=== PATIENT | male | born 1950 | race Caucasian/White ===

== ENCOUNTER → 2017-07-28 07:00 | Outpatient (CLI) | payer OTHER, SELFPAY ==
[2017-07-28 10:55] LABS: ALB/GLOB Ratio 1.1 RATIO (0.9-2.4); AST(SGOT) 18 U/L (15-37); Alanine Aminotransfer ALT/SGPT 34 U/L (16-61); Albumin, Serum 3.8 g/dL (3.2-5.0); Alkaline Phosphatase 84 U/L (45-117); Anion Gap 7 (5-15); BUN 17 mg/dL (7-18); BUN/Creat Ratio 18.8 RATIO (10-20); Calcium,Total 8.7 mg/dL (8.5-10.1); Chloride 107 mmol/L (98-107); Cholesterol 180 mg/dL (200); EST Glomerular Filtration Rate 89 mL/min (>60); Est Glom Filt Rate - Afr Amer 108 mL/min (>60); Globulin 3.4 g/dL (2.2-4.2); Glucose 95 mg/dL (74-106); High Density Lipoprotein 33 mg/dL; PSA,Total - Annual Screen 5.48 ng/mL (0.00-4.00); Potassium 4.1 mmol/L (3.5-5.1); Protein, Total 7.2 g/dL (6.4-8.2); Sodium Level 141 mmol/L (136-145); Triglycerides 101 mg/dL; Very Low Density Lipoprotein 20 mg/dL (5-40)
[2017-07-29 07:12] LABS: Hep C Antibodies <0.1 s/co ratio (0.0-0.9)
== END ==
PROVIDERS: Family Provider Family Medicine; PCP Family Medicine; Visit Provider Family Medicine
DX: Z11.59 Encounter for screening for other viral diseases (principal); Z12.5 Encounter for screening for malignant neoplasm of prostate; E78.00 Pure hypercholesterolemia, unspecified
CPT/HCPCS: 36415; 80053; 80061; 84153; 86803; G0103

== ENCOUNTER → 2017-10-22 07:04 | Outpatient (CLI) | payer OTHER, SELFPAY ==
[2017-10-23 11:26] LABS: PSA, Free 0.74 ng/mL; PSA, Free % 15.1 % (.); PSA, Total Ultrasensitive 4.9 ng/mL (0.0-4.0)
== END ==
PROVIDERS: Family Provider Family Medicine; PCP Family Medicine; Visit Provider Family Medicine
DX: R97.20 Elevated prostate specific antigen [PSA] (principal)
CPT/HCPCS: 36415; 84153; 84154

== ENCOUNTER → 2018-04-21 07:02 | Outpatient (CLI) | payer OTHER, SELFPAY ==
[2018-04-22 12:07] LABS: PSA, Free 0.21 ng/mL; PSA, Free % 26.3 % (.); PSA, Total Ultrasensitive 0.8 ng/mL (0.0-4.0)
== END ==
PROVIDERS: Family Provider Family Medicine; PCP Family Medicine; Referring Provider Family Medicine; Visit Provider Family Medicine
DX: R97.20 Elevated prostate specific antigen [PSA] (principal)
CPT/HCPCS: 36415; 84153; 84154

== ENCOUNTER 2018-11-18 21:06 | Emergency (ER) | payer OTHER, SELFPAY ==
[2018-11-18 21:07] VITALS: BP 156/88; PULSE 68; RESP 16; TEMP 36.7; O2SAT 97; BMI 29.4
--- NOTE | 2018-11-18 21:35 | CT_ITS ---
STUDY: CT ABDOMEN AND PELVIS WITHOUT CONTRAST REASON FOR EXAM: Male, 68 years old. Right flank pain RADIATION DOSAGE (If Supplied By Facility): CTDIvol = ( 10.38 ) mGy, DLP = ( 604.30 ) mGycm TECHNIQUE: Transaxial images were obtained from the dome of the diaphragm to the symphysis pubis without oral contrast, and without intravenous contrast. Sagittal and coronal images were reconstructed. Individualized dose optimization techniques were used for this CT. COMPARISON: None. FINDINGS: Left lower lobe calcified granulomas. The visualized portions of the heart are within normal limits. Granulomatous calcifications in the spleen and liver. Normal gallbladder and extrahepatic biliary system. Normal pancreas. Normal bilateral adrenal glands. Mild hydronephrosis of the right kidney with right hydroureter. There is an obstructive 5 mm stone at the right ureteral level. Mild right perinephric stranding. Nonobstructive 2 mm upper pole stone in the left kidney. Normal visualized stomach. Normal small intestine. Diverticulosis of the colon. The appendix is visualized and appears normal. Normal abdominal aorta. Normal inferior vena cava. Normal retroperitoneum. Normal urinary bladder. The prostate measures 4 x 5.3 cm. Fatty density at the inguinal canals, left more than right. Normal abdominal wall. Mild degenerative vertebral changes. CT/Abdomen/Pelvis without Cont IMPRESSION: Obstructive right mid ureteral stone with right hydronephrosis and proximal right hydroureter. Nonobstructive left renal stone. Electronically Signed: Sai Ly DO at 22:38 EDT Tel [phone], Service support ,
--- NOTE | 2018-11-18 21:35 | ED.VIS.GEN ---
History of Present Illness Chief Complaint: Back Informant: Patient Onset: Weeks Current Severity: Moderate Narrative: He came in for evaluation, he had normal urinary bowel bladder habits no trauma no history of kidney stone or kidney ailments, no nausea or vomiting or fever takes no medications has really no past history assures me he did not injure himself in any way he points right his right flank the midline back is not tender the pain does not radiate, he has no lower extremity issues or complaints again he was very active today mowing the yard without difficulty he complains of right flank pain for about a week or so seems to come and go he was able to move the yard today he had exacerbation Past Medical History - Allergies and Home Meds Allergies/Adverse Reactions: Allergies No Known Allergies Allergy (Verified 11/18/18 21:09) Primary Care Physician: Leroy Salcido MD [Primary Care Provider] - Past Medical History: None Review of Systems All systems negative except as indicated General: Denies: Chills, Fever, Sweats Eyes: Denies: Visual changes - bilaterally, Diplopia ENT: Denies: Rhinorrhea, Sore throat Cardiovascular: Denies: Chest pain, Palpitations Respiratory: Denies: Dyspnea, Cough, Dyspnea on exertion Gastrointestinal: Denies: Abdominal pain, Nausea, Vomiting, Diarrhea, Melena, Hematochezia Genitourinary: Denies: Dysuria, Hematuria, Frequency Musculoskeletal: Reports: Back pain. Denies: Extremity Pain Skin: Denies: Rash, Wounds Neurological: Denies: Headache, Weakness, Numbness Physical Exam Vital Signs/Narrative: Vital Signs Temp Pulse Resp BP Pulse Ox 11/18/18 21:07 98.1 F 68 16 156/88 H 97 Inital Vital Signs reviewed: Yes General: Well nourished, Well developed, No Acute Distress Head: Normocephalic, Atraumatic Eyes: Perrl, EOMI ENT: Moist mucous membranes, No rhinorrhea Neck: Supple, Nontender Cardiovascular: Regular rate, Regular rhythm, No murmurs Respiratory: No distress, CTA bilaterally, Chest nontender Abdomen: Soft, Nontender, Nondistended, Normal bowel sounds Back: Nontender, Normal Inspection, CVA tenderness, - - He has pain to the right flank there is no lesions warmth tenderness here the midline back is entirely unremarkable the abdomen is soft and nontender Extremities: Nontender, No edema Skin: Normal color, No rash Neurological: Alert, Oriented x3, Cranial nerves II-XII grossly intact, Normal Strength, Normal Sensation Psychological: Normal affect, Normal Mood Diagnostic/Tx/Re-eval - Medical Decision Making Given his complaints given the nature of the pain that it seems to be waxing and waning it seemed to exacerbate today but not because he more the lawn he reports any trauma screening labs CT IV fluids The patient's labs are generally unremarkable except his UA shows 5-10 whites 5-10 reds, urine culture sent, the CT scan shows a 5 mm obstructing stone right ureter see that report on reevaluation is resting company feels better Explained all of the above to him he is comfortable with discharge home on Naprosyn, Meldrim, as a rescue medicine Flomax, he will follow-up with Deon PEREZ and return for change in symptoms and understands need to have the urine culture result checked Final impression Right flank pain related to obstructing right kidney stone ED Disposition - Plan for ED Patient: Diagnosis: Kidney stone on right side Prescriptions: Hydrocodone Bitart/Apap 5-325 [Meldrim 5MG-325MG] 1 tab PO Q4H PRN PRN 2 Days #10 tab PRN Reason: Pain Naproxen [Naprosyn] 500 mg PO BID PRN #20 tab Tamsulosin HCl [Flomax] 0.4 mg PO DAILY #7 cap Referrals: Leroy Salcido MD [Primary Care Provider] - Fransico Gallagher MD [STAFF PHYSICIAN] -
[2018-11-18 21:58] LABS: Squamous Epithelial Cells - UA 0 SEEN /hpf (0-5)
[2018-11-18] MEDS: 0.9% Normal Saline 1,000 ML 250 ML IV (21:58)
[2018-11-18] MEDS: Ondansetron 4 MG/2 ML Vial IV (21:58)
[2018-11-18] MEDS: Ketorolac 30 MG/ML Syringe IV (21:58)
[2018-11-18] MEDS: morphine 8 MG/ML Syringe IV (21:59)
[2018-11-18 22:06] LABS: Color, Urine Yellow (Yellow); Glucose, Dipstick Normal (Normal); Ketone-Dipstick 5 mg/dl (Negative); Leukocyte Esterase-Dipstick 25 /ul (Negative); Nitrite-Dipstick Negative (Negative); Occult Blood-Urine 150 /ul (Negative); Protein-Dipstick 30 mg/dl (Negative); Urine Bilirubin Dipstick Negative (Negative); Urine Clarity Clear (Clear); Urine Urobilinogen 1 mg/dl (Normal)
[2018-11-18 22:22] LABS: Bacteria RARE /hpf (None Seen); Mucous, Urine 1+ /hpf (<or=2+); Red Blood Cells-Urine 5-10 SEEN /hpf (0-5); White Blood Cells 5-10 SEEN /hpf (0-5)
[2018-11-18 22:25] LABS: Anion Gap 5 (5-15); BUN 25 mg/dL (7-18); BUN/Creat Ratio 19.4 RATIO (10-20); Calcium,Total 9.3 mg/dL (8.5-10.1); Chloride 110 mmol/L (98-107); Creatinine, Serum 1.29 mg/dL (0.70-1.30); EST Glomerular Filtration Rate 59 mL/min (>60); Est Glom Filt Rate - Afr Amer 71 mL/min (>60); Estimated Creatinine Clearance 56.59 ml/min; Glucose 146 mg/dL (74-106); Potassium 3.9 mmol/L (3.5-5.1); Sodium Level 143 mmol/L (136-145)
[2018-11-18 23:30] VITALS: BP 136/78; PULSE 58; RESP 16; O2SAT 98
== END 2018-11-18 23:45 | disposition home or self-care (01) ==
LOC: ED 21:39
PROVIDERS: Emergency Provider Emergency Medicine; Family Provider Family Medicine; PCP Family Medicine
DX: N13.2 Hydronephrosis with renal and ureteral calculous obstruction (principal)
CPT/HCPCS: 74176; 80048; 81001; 87086; 96361; 96374; 96375; 99284; J7030; A4216; J2405

== ENCOUNTER → 2018-11-22 10:22 | Outpatient (CLI) | payer OTHER, SELFPAY ==
[2018-11-18 21:07] VITALS: BMI 29.4
--- NOTE | 2018-11-22 10:35 | RAD_ITS ---
STUDY: X-RAY - ABDOMEN/PELVIS REASON FOR EXAM: Male, 68 years old. History of kidney stone. TECHNIQUE: Single AP view of the abdomen / pelvis. COMPARISON: None. FINDINGS: There are nonspecific gaseous small bowel loops and colon. The visualized liver, spleen and kidneys are grossly normal in size. There is no demonstrated abnormal calcifications in the region of the kidneys or the pelvis region. There are diffuse degenerative changes of the visualized lumbar spine. RAD/Abdomen Single View IMPRESSION: Nonspecific gas pattern. Electronically Signed: Baron Villagomez MD at 8:25 EDT Tel , Service support ,
== END ==
PROVIDERS: Family Provider Family Medicine; PCP Family Medicine; Referring Provider Urology; Visit Provider Urology
DX: N20.0 Calculus of kidney (principal)
CPT/HCPCS: 74018

== ENCOUNTER 2018-11-24 13:10 | Day surgery (SDC) | payer OTHER, SELFPAY ==
[2018-11-24 13:26] VITALS: BP 138/87; PULSE 75; RESP 16; TEMP 36.7; O2SAT 99; BMI 29.4
--- NOTE | 2018-11-24 15:07 | DCINST_ITS ---
Discharge Diet: Light diet - advance as tolerated Discharge Activity: Return to Normal Activity Allergies/Adverse Reactions: Allergies No Known Allergies Allergy (Verified 11/23/18 13:42) Medications to take at Discharge Aspirin [Aspir-Low] 81 mg PO DAILY 11/18/18 Atorvastatin Calcium 10 mg PO DAILY 11/18/18 Naproxen [Naprosyn] 500 mg PO BID PRN PRN 11/23/18 Primary Care Physician: Leroy Salcido MD [Primary Care Provider] - Test Results: Test results from this visit will be discussed in further detail at your follow- up appointment, if applicable. Please Follow Up With: Fransico Gallagher MD When: please call to make an appointment.
[2018-11-24] MEDS: Cefazolin 2 GM in 0.9% Normal Saline 100 ML IV (15:16)
--- NOTE | 2018-11-24 16:08 | OP.PCM_ITS ---
Report of Operation Date of Procedure: 11/24/18 Pre-Operative Diagnosis: Right ureteral calculi Post-Operative Diagnosis: Same Surgery/Procedure Performed:: Cystoscopy, balloon dilation of the right ureter, right ureteroscopy laser lithotripsy of stone, right retrograde pyelogram and interpretation fluoroscopic images, and right stent placement Description of Surgical Findings:: 68-year-old male presents with an obstructing stone in the mid right ureter today renal proceed with right ureteroscopy and laser lithotripsy of stone and stent placement 68-year-old male taken back to the operating room at the smooth induction of general anesthesia he was placed in dorsolithotomy position, the penis and testicles are prepped and draped in usual sterile fashion, went into the bladder with a 21 Macanese rigid cystourethroscope, the entire length the urethra was normal pendulous urethra was normal bulbar urethra normal sphincter was intact went to the prostate had some mild hypertrophy of the prostate into the bladder identified the right ureteral orifice used a balloon dilator and Glidewire cannulated the right ureteral orifice with a Glidewire advanced a wire up into the kidney, then behind the wire advanced a 10 cm 12 Macanese balloon dilator and balloon dilated the distal ureteral orifice. After completion of the balloon dilation then left the wire in place drain the bladder and then went over the wire with a flexible 8 Macanese ureteroscope, was able to get into the ureter quite easily went up the ureter as encountered the stone the stone and flushed back into the kidney and then trapped the stone in the midpole of the kidney and performed laser lithotripsy into the stone was broken up the tiny fragments once a stone was broken up and smaller fragments are all passed in the Abril then performed a retrograde pyelogram to look at the images to see the filling of the contrast filling the kidney upper pole midpole lower pole no other fragments were seen but a wire at the ureteroscope work my way down the ureter I did not see any major fragments or stones along the course of the ureter no injury perforation along the course of the ureter and then over the wire I placed a stent it was a 6 Macanese by 26 cm stent left the stent in place once I pulled the wire stent in the kidney bladder good position left the string on the stent for easy extraction in near future bladder was drained left the stent on there and trimmed it and then patient's anesthetic is currently being reversed to be discharged home with a stent and follow-up next week on Thursday to remove the stent in the office. Type of Anesthesia:: General Drains: stent - Admit VTE Documentation VTE Present on Admission: No VTE Mechan Device Prophylaxis: SCD's
[2018-11-24 16:15] VITALS: BP 127/79; BP 138/87; PULSE 95; RESP 16; TEMP 36.6; O2SAT 93
[2018-11-24] MEDS: Ketorolac 15 MG/ML Vial IV (16:23)
[2018-11-24 16:30] VITALS: BP 126/82; BP 138/87; PULSE 68; RESP 16; O2SAT 99
[2018-11-24 16:33] VITALS: BP 129/85; BP 138/87; PULSE 69; RESP 16; TEMP 36.6; O2SAT 100
[2018-11-24] MEDS: Acetaminophen 325 MG Tablet 650 MG PO (17:05)
[2018-11-24 17:15] VITALS: BP 138/87
== END 2018-11-24 17:25 | disposition home or self-care (01) ==
LOC: SDC 13:11 → AC 13:12
PROVIDERS: Family Provider Family Medicine; PCP Family Medicine; Referring Provider Urology; Visit Provider Urology
PROC: 0TJ98ZZ Inspection of Ureter, Via Natural or Artificial Opening Endoscopic (ICD-10-PCS; CPT 52352; principal; 2018-11-24 15:05)
DX: N20.1 Calculus of ureter (principal); E78.00 Pure hypercholesterolemia, unspecified; Z79.82 Long term (current) use of aspirin; Z79.899 Other long term (current) drug therapy
CPT/HCPCS: 00873; 52356; 76000; J7120; C1769; C2617; J2405

== ENCOUNTER → 2018-12-08 07:02 | Outpatient (CLI) | payer OTHER, SELFPAY ==
[2018-11-24 13:26] VITALS: BMI 29.4
[2018-12-08 10:28] LABS: AST(SGOT) 18 U/L (15-37); Alanine Aminotransfer ALT/SGPT 33 U/L (16-61); Albumin, Serum 3.6 g/dL (3.2-5.0); Alkaline Phosphatase 92 U/L (45-117); Anion Gap 8 (5-15); BUN 22 mg/dL (7-18); BUN/Creat Ratio 22.8 RATIO (10-20); Calcium,Total 8.7 mg/dL (8.5-10.1); Chloride 110 mmol/L (98-107); Cholesterol 179 mg/dL (200); Creatinine, Serum 0.97 mg/dL (0.70-1.30); EST Glomerular Filtration Rate 82 mL/min (>60); Est Glom Filt Rate - Afr Amer 99 mL/min (>60); Globulin 3.6 g/dL (2.2-4.2); Glucose 96 mg/dL (74-106); High Density Lipoprotein 32 mg/dL; PSA,Total- Diagnostic 7.78 ng/mL (0.0-4.0); Potassium 3.8 mmol/L (3.5-5.1); Protein, Total 7.2 g/dL (6.4-8.2); Sodium Level 145 mmol/L (136-145); Triglycerides 100 mg/dL; Very Low Density Lipoprotein 20 mg/dL (5-40)
== END ==
PROVIDERS: Family Provider Family Medicine; PCP Family Medicine; Referring Provider Family Medicine; Visit Provider Family Medicine
DX: E78.00 Pure hypercholesterolemia, unspecified (principal); R97.20 Elevated prostate specific antigen [PSA]
CPT/HCPCS: 36415; 80053; 80061; 84153

== ENCOUNTER → 2019-04-13 07:11 | Outpatient (CLI) | payer MEDICARE, OTHER, SELFPAY ==
[2019-04-13 10:17] LABS: PSA,Total- Diagnostic 5.38 ng/mL (0.0-4.0)
== END ==
PROVIDERS: Family Provider Family Medicine; PCP Family Medicine; Referring Provider Urology; Visit Provider Urology
DX: R97.20 Elevated prostate specific antigen [PSA] (principal)
CPT/HCPCS: 36415; 84153

== ENCOUNTER → 2019-06-21 07:00 | Outpatient (CLI) | payer MEDICARE, OTHER, SELFPAY ==
[2019-06-22 11:37] LABS: PSA, Free 0.81 ng/mL; PSA, Total Ultrasensitive 5.4 ng/mL (0.0-4.0)
== END ==
PROVIDERS: Family Provider Family Medicine; PCP Family Medicine; Referring Provider Urology; Visit Provider Urology
DX: R97.20 Elevated prostate specific antigen [PSA] (principal)
CPT/HCPCS: 36415; 84153; 84154

== ENCOUNTER → 2019-10-13 07:01 | Outpatient (CLI) | payer MEDICARE, OTHER, SELFPAY ==
[2019-10-14 11:01] LABS: PSA, Free 1.05 ng/mL
== END ==
PROVIDERS: PCP Family Medicine; Referring Provider Urology; Visit Provider Urology
DX: R97.20 Elevated prostate specific antigen [PSA] (principal)
CPT/HCPCS: 36415; 84153; 84154

== ENCOUNTER → 2019-11-01 08:00 | Outpatient (CLI) | payer MEDICARE, OTHER, SELFPAY ==
--- NOTE | 2019-11-01 08:00 | PROSBIL_PTH ---
PATIENT: KEILY HOOPER LOC: [facility] U#:[id number] AGE/SX: 75/M ROOM: RE11/01/[address]: Dr. Fransico Gallagher MD : 1950 BED: DIS: SPEC #: [id number] RECD: 11/01/19 17:03 STATUS: JOSS VANNESSA #: [id number] DASH: 11/01/19 08:[address]: Fransico Gallagher DEPT: SURGICAL PATHOLOGY RECD BY: Cong Caicedo ENTERED: 11/02/19 10:57 SP TYPE: PROST BX OTHR DR: Dr. Jerald Salcido MD Tissues: A - PROSTATE RIGHT B - PROSTATE RIGHT C - PROSTATE RIGHT D - PROSTATE LEFT E - PROSTATE LEFT F - PROSTATE LEFT Procedures: PROSTATE BX Special Stain Group I AF[employer] Stain (control) GMS Stain (control) HEADER OPERATION: Prostate biopsy PRE-OP DIAGNOSIS: Prostate cancer TISSUE SUBMITTED: A - Right apex, B - Right mid, C - Right base, D - Left apex, E - Left mid, F - Left base MICROSCOPIC DIAGNOSIS A. Right prostate, apex, core biopsy: Prostatic tissue, negative for malignancy. Focal mild chronic granulomatous inflammation. Special stains for acid fast bacilli and fungi are negative for organisms; matched controls are appropriate. B. Right prostate, mid, core biopsy: Prostatic tissue, negative for malignancy. C. Right prostate, base, core biopsy: Prostatic tissue, negative for malignancy. D. Left prostate, apex, core biopsy: Prostatic tissue, negative for malignancy. E. Left prostate, mid, core biopsy: Prostatic tissue, negative for malignancy. Focal minimal acute and chronic inflammation. F. Left prostate, base, core biopsy: Prostatic tissue, negative for malignancy. SJ:tahira 11/03/19 MICROSCOPIC DESCRIPTION Slides are reviewed. GROSS DESCRIPTION A - Received is one container designated prostate, right apex. The specimen consists of two elongated fragments of light borrego-white soft tissue measuring 1.5 and 1.8 cm in length and 0.1 cm in diameter. The specimen is totally submitted in one cassette. B - Received is one container designated prostate, right mid. The specimen consists of three elongated fragments of light borrego-white soft tissue measuring 0.6 to 1.8 cm in length and 0.1 cm in diameter. The specimen is totally submitted in one cassette. C - Received is one container designated prostate, right base. The specimen consists of two elongated fragments of light borrego-white soft tissue each measuring 1 cm in length and 0.1 cm in diameter. The specimen is totally submitted in one cassette. D - Received is one container designated prostate, left apex. The specimen consists of two elongated fragments of light borrego-white soft tissue each measuring 1 cm in length and 0.1 cm in diameter. The specimen is totally submitted in one cassette. E - Received is one container designated prostate, left mid. The specimen consists of two elongated fragments of light borrego-white soft tissue measuring 1.3 and 2 cm in length and 0.1 cm in diameter. The specimen is totally submitted in one cassette. F - Received is one container designated prostate, left base. The specimen consists of two elongated fragments of light borrego-white soft tissue each measuring 1.5 and 0.1 cm in length and 0.1 cm in diameter. The specimen is totally submitted in one cassette. / OK:tahira 11/02/19 TC:3 CPT: G0146, 41959 x2
== END ==
PROVIDERS: PCP Family Medicine; Referring Provider Urology; Visit Provider Urology
DX: C61 Malignant neoplasm of prostate (principal)
CPT/HCPCS: 88305; 88312; G0416

== ENCOUNTER → 2019-11-11 07:02 | Outpatient (CLI) | payer MEDICARE, OTHER, SELFPAY ==
[2019-11-11 10:25] LABS: ALB/GLOB Ratio 1.1 RATIO (0.9-2.4); AST(SGOT) 18 U/L (15-37); Alanine Aminotransfer ALT/SGPT 24 U/L (16-61); Alkaline Phosphatase 83 U/L (45-117); Anion Gap 8 (5-15); BUN 25 mg/dL (7-18); BUN/Creat Ratio 28.3 RATIO (10-20); Calcium,Total 8.9 mg/dL (8.5-10.1); Chloride 110 mmol/L (98-107); Cholesterol 192 mg/dL (200); Creatinine, Serum 0.88 mg/dL (0.70-1.30); EST Glomerular Filtration Rate 91 mL/min (>60); Est Glom Filt Rate - Afr Amer 110 mL/min (>60); Globulin 3.5 g/dL (2.2-4.2); Glucose 91 mg/dL (74-106); High Density Lipoprotein 34 mg/dL; Potassium 3.7 mmol/L (3.5-5.1); Protein, Total 7.5 g/dL (6.4-8.2); Sodium Level 143 mmol/L (136-145); Triglycerides 77 mg/dL; Very Low Density Lipoprotein 15 mg/dL (5-40)
== END ==
PROVIDERS: PCP Family Medicine; Referring Provider Family Medicine; Visit Provider Family Medicine
DX: E78.00 Pure hypercholesterolemia, unspecified (principal)
CPT/HCPCS: 36415; 80053; 80061

== ENCOUNTER → 2020-02-16 07:00 | Outpatient (CLI) | payer MEDICARE, OTHER, SELFPAY ==
[2020-02-16 10:27] LABS: Cholesterol 154 mg/dL (200); High Density Lipoprotein 31 mg/dL; Triglycerides 129 mg/dL; Very Low Density Lipoprotein 26 mg/dL (5-40)
== END ==
PROVIDERS: PCP Family Medicine; Referring Provider Family Medicine; Visit Provider Family Medicine
DX: E78.00 Pure hypercholesterolemia, unspecified (principal)
CPT/HCPCS: 36415; 80061

== ENCOUNTER → 2020-05-09 07:08 | Outpatient (CLI) | payer MEDICARE, OTHER, SELFPAY | PROVIDERS: PCP Family Medicine; Referring Provider Urology; Visit Provider Urology | DX: R97.20 Elevated prostate specific antigen [PSA] (principal) | CPT/HCPCS: 36415; 84153 ==

== ENCOUNTER → 2020-05-18 16:08 | Outpatient (CLI) | payer MEDICARE, OTHER, SELFPAY | PROVIDERS: PCP Family Medicine; Referring Provider Nurse Practitioner Family; Visit Provider Nurse Practitioner Family | DX: R43.0 Anosmia (principal) | CPT/HCPCS: 87635; U0003 ==

== ENCOUNTER → 2020-11-02 07:04 | Outpatient (CLI) | payer MEDICARE, SELFPAY ==
[2020-11-02 10:43] LABS: ALB/GLOB Ratio 1.1 RATIO (0.9-2.4); AST(SGOT) 14 U/L (15-37); Alanine Aminotransfer ALT/SGPT 24 U/L (16-61); Albumin, Serum 3.8 g/dL (3.2-5.0); Alkaline Phosphatase 87 U/L (45-117); Anion Gap 4 (5-15); BUN 21 mg/dL (7-18); BUN/Creat Ratio 23.8 RATIO (10-20); Chloride 109 mmol/L (98-107); Cholesterol 145 mg/dL (200); Creatinine, Serum 0.88 mg/dL (0.70-1.30); EST Glomerular Filtration Rate 90 mL/min (>60); Est Glom Filt Rate - Afr Amer 109 mL/min (>60); Globulin 3.4 g/dL (2.2-4.2); Glucose 99 mg/dL (74-106); High Density Lipoprotein 36 mg/dL; Potassium 4.2 mmol/L (3.5-5.1); Protein, Total 7.2 g/dL (6.4-8.2); Sodium Level 142 mmol/L (136-145); Triglycerides 70 mg/dL; Very Low Density Lipoprotein 14 mg/dL (5-40)
== END ==
PROVIDERS: PCP Family Medicine; Referring Provider Family Medicine; Visit Provider Family Medicine
DX: E78.00 Pure hypercholesterolemia, unspecified (principal)
CPT/HCPCS: 36415; 80053; 80061

== ENCOUNTER 2021-06-28 07:03 | Outpatient (CLI) | payer MEDICARE, SELFPAY ==
[2021-06-28 10:27] LABS: AST(SGOT) 18 U/L (15-37); Alanine Aminotransfer ALT/SGPT 34 U/L (16-61); Albumin, Serum 3.8 g/dL (3.2-5.0); Alkaline Phosphatase 81 U/L (45-117); Anion Gap 4 (5-15); BUN 18 mg/dL (7-18); BUN/Creat Ratio 19.2 RATIO (10-20); Calcium,Total 9.4 mg/dL (8.5-10.1); Chloride 108 mmol/L (98-107); Cholesterol 172 mg/dL (200); Creatinine, Serum 0.94 mg/dL (0.70-1.30); EST Glomerular Filtration Rate 84 mL/min (>60); Est Glom Filt Rate - Afr Amer 102 mL/min (>60); Globulin 3.7 g/dL (2.2-4.2); Glucose 99 mg/dL (74-106); High Density Lipoprotein 34 mg/dL; PSA,Total- Diagnostic 6.22 ng/mL (0.0-4.0); Protein, Total 7.5 g/dL (6.4-8.2); Sodium Level 141 mmol/L (136-145); Triglycerides 75 mg/dL; Very Low Density Lipoprotein 15 mg/dL (5-40)
== END 2021-06-28 23:59 | disposition short-term general hospital (02) ==
LOC: MTLAB 07:04
PROVIDERS: PCP Family Medicine; Referring Provider Urology; Visit Provider Urology
DX: R97.20 Elevated prostate specific antigen [PSA] (principal); E78.00 Pure hypercholesterolemia, unspecified
CPT/HCPCS: 36415; 80053; 80061; 84153

== ENCOUNTER → 2022-05-15 | Outpatient (CLI) | payer MEDICARE, SELFPAY ==
[2022-05-15 11:15] LABS: Cholesterol 164 mg/dL (200); High Density Lipoprotein 36 mg/dL; Triglycerides 80 mg/dL; Very Low Density Lipoprotein 16 mg/dL (5-40)
== END | disposition home or self-care (01) ==
LOC: MTLAB 08:38
PROVIDERS: PCP Family Medicine; Referring Provider Family Medicine; Visit Provider Family Medicine
DX: E78.00 Pure hypercholesterolemia, unspecified (principal)
CPT/HCPCS: 36415; 80061

== ENCOUNTER → 2022-07-01 | Outpatient (CLI) | payer MEDICARE, SELFPAY ==
[2022-07-01 10:22] LABS: PSA,Total- Diagnostic 5.94 ng/mL (0.0-4.0)
== END | disposition home or self-care (01) ==
LOC: MTLAB 07:02
PROVIDERS: PCP Family Medicine; Referring Provider Urology; Visit Provider Urology
DX: N40.1 Benign prostatic hyperplasia with lower urinary tract symptoms (principal)
CPT/HCPCS: 36415; 84153

== ENCOUNTER → 2023-07-02 | Outpatient (CLI) | payer MEDICARE, SELFPAY | END | disposition home or self-care (01) | PROVIDERS: PCP Family Medicine; Referring Provider Urology; Visit Provider Urology | DX: R97.20 Elevated prostate specific antigen [PSA] (principal) | CPT/HCPCS: 36415; 84153 ==

== ENCOUNTER → 2023-11-19 | Outpatient (CLI) | payer MEDICARE, SELFPAY ==
[2023-11-19 10:45] LABS: ALB/GLOB Ratio 1.1 RATIO (0.9-2.4); AST(SGOT) 19 U/L (15-37); Alanine Aminotransfer ALT/SGPT 26 U/L (16-61); Albumin, Serum 3.7 g/dL (3.2-5.0); Alkaline Phosphatase 79 U/L (45-117); Anion Gap 4 (5-15); BUN 20 mg/dL (7-18); Calcium,Total 8.9 mg/dL (8.5-10.1); Chloride 110 mmol/L (98-107); Cholesterol 153 mg/dL (200); Creatinine, Serum 0.87 mg/dL (0.70-1.30); EST Glomerular Filtration Rate 91 mL/min (>60); Est Glom Filt Rate - Afr Amer 111 mL/min (>60); Globulin 3.3 g/dL (2.2-4.2); Glucose 106 mg/dL (74-106); High Density Lipoprotein 32 mg/dL; PSA,Total - Annual Screen 4.88 ng/mL (0.00-4.00); Potassium 4.4 mmol/L (3.5-5.1); Sodium Level 141 mmol/L (136-145); Triglycerides 88 mg/dL; Very Low Density Lipoprotein 18 mg/dL (5-40)
== END | disposition home or self-care (01) ==
LOC: MTLAB 07:01
PROVIDERS: PCP Family Medicine; Referring Provider Family Medicine; Visit Provider Family Medicine
DX: Z00.00 Encounter for general adult medical examination without abnormal findings (principal); Z12.5 Encounter for screening for malignant neoplasm of prostate; E78.00 Pure hypercholesterolemia, unspecified
CPT/HCPCS: 36415; 80053; 80061; 84153; G0103

== ENCOUNTER → 2024-07-06 | Outpatient (CLI) | payer MEDICARE, SELFPAY ==
[2024-07-06 10:33] LABS: ALB/GLOB Ratio 1.1 RATIO (0.9-2.4); AST(SGOT) 18 U/L (15-37); Alanine Aminotransfer ALT/SGPT 27 U/L (16-61); Albumin, Serum 3.8 g/dL (3.2-5.0); Alkaline Phosphatase 75 U/L (45-117); Anion Gap 8 (5-15); BUN 18 mg/dL (7-18); BUN/Creat Ratio 20.2 RATIO (10-20); Calcium,Total 9.2 mg/dL (8.5-10.1); Chloride 105 mmol/L (98-107); Cholesterol 172 mg/dL (200); Creatinine, Serum 0.89 mg/dL (0.70-1.30); EST Glomerular Filtration Rate 89 mL/min (>60); Est Glom Filt Rate - Afr Amer 107 mL/min (>60); Globulin 3.4 g/dL (2.2-4.2); Glucose 99 mg/dL (74-106); High Density Lipoprotein 39 mg/dL; PSA,Total- Diagnostic 4.71 ng/mL (0.0-4.0); Potassium 4.4 mmol/L (3.5-5.1); Protein, Total 7.2 g/dL (6.4-8.2); Sodium Level 142 mmol/L (136-145); Triglycerides 92 mg/dL; Very Low Density Lipoprotein 18 mg/dL (5-40)
== END | disposition home or self-care (01) ==
LOC: MTLAB 07:05
PROVIDERS: PCP Family Medicine; Referring Provider Nurse Practitioner; Visit Provider Nurse Practitioner
DX: R97.20 Elevated prostate specific antigen [PSA] (principal); I10 Essential (primary) hypertension
CPT/HCPCS: 36415; 80053; 80061; 84153